=== PATIENT | female | born 2000 | race Hispanic/Latino ===

== ENCOUNTER 2018-11-30 16:41 | Emergency (ER) | payer OTHER ==
[~2018-11-30] VITALS: Ht 165.1 cm; Wt 70.5 kg
[2018-11-30] MEDS ORDERED: ACETAMINOPHEN TAB 650MG DOSE (2X325MG) PO ONE (19:30)
--- NOTE | 2018-11-30 20:26 | REPVR ---
EXAM: CT Cervical Spine Without Contrast EXAM DATE/TIME: 11/30/2018 7:40 PM CLINICAL HISTORY: 18 years old, female; Injury or trauma; Fall; Initial encounter; Blunt trauma; Additional info: Blunt trauma; Neck/back pain TECHNIQUE: Imaging protocol: Axial computed tomography images of the cervical spine without contrast. Coronal and sagittal reformatted images were created and reviewed. Radiation optimization: All CT scans at this facility use at least one of these dose optimization techniques: automated exposure control; mA and/or kV adjustment per patient size (includes targeted exams where dose is matched to clinical indication); or iterative reconstruction. COMPARISON: No relevant prior studies available. FINDINGS: Vertebrae: No acute fracture. Normal alignment. Discs/Spinal canal/Neural foramina: No spinal stenosis. No neural foraminal narrowing. Soft tissues: Unremarkable. Lungs: Lung apices are normal. Other: Foamy mucosal secretions are seen in the right maxillary sinus. IMPRESSION: No acute findings. Electronically signed by: Irene Abrams On 11/30/2018 20:26:07 PM
--- NOTE | 2018-11-30 20:31 | REPVR ---
EXAM: CT Thoracic Spine Without Contrast EXAM DATE/TIME: 11/30/2018 7:40 PM CLINICAL HISTORY: 18 years old, female; Injury or trauma; Fall; Initial encounter; Blunt trauma (contusions or hematomas); Additional info: Blunt trauma; Neck/back pain TECHNIQUE: Imaging protocol: Axial computed tomography images of the thoracic spine without intravenous contrast. Coronal and sagittal reformatted images were created and reviewed. Radiation optimization: All CT scans at this facility use at least one of these dose optimization techniques: automated exposure control; mA and/or kV adjustment per patient size (includes targeted exams where dose is matched to clinical indication); or iterative reconstruction. COMPARISON: No relevant prior studies available. FINDINGS: Vertebrae: No acute fracture. Normal alignment. Discs/Spinal canal/Neural foramina: No spinal stenosis. No neural foraminal narrowing. Soft tissues: Unremarkable. IMPRESSION: Unremarkable CT Spine. Electronically signed by: Irene Arbams On 11/30/2018 20:30:47 PM
[2018-11-30 21:02] VITALS: BP 128/67
== END 2018-11-30 21:21 | disposition home or self-care (01) ==
LOC: M ED 16:41
DX: S10.83XA Contusion of other specified part of neck, initial encounter (principal); S20.229A Contusion of unspecified back wall of thorax, initial encounter; X58.XXXA Exposure to other specified factors, initial encounter; Y92.138 Other place on military base as the place of occurrence of the external cause; Y99.1 Military activity

== ENCOUNTER 2019-06-13 09:40 | Emergency (ER) | payer OTHER ==
[~2019-06-13] VITALS: Ht 154.9 cm; Wt 67.3 kg
[2019-06-13] MEDS ORDERED: IBUP200T45 PO (09:48)
[2019-06-13] MEDS ORDERED: NS 1,000 ML IV ONE (10:15)
[2019-06-13] MEDS ORDERED: KETOROLAC 30 MG/ML VIAL (J1885) IV ONE (10:15)
[2019-06-13] MEDS ORDERED: ONDANSETRON 4MG/2ML VIAL (J2405) IV ONE (10:15)
[2019-06-13 10:45] LABS: BASO % 0.5 % (0.0-1.0); EOS # 0.1 10^3/uL (0.0-0.5); EOS % 1.1 % (0.0-3.0); HEMATOCRIT 39.3 % (36.0-47.0); HEMOGLOBIN 13.2 g/dl (12.0-15.5); LYMPH # 2.3 10^3/uL (1.5-5.0); LYMPH % 29.4 % (24.0-44.0); MEAN CORPUSCULAR HGB CONC 33.6 g/dl (32.0-36.5); MEAN CORPUSCULAR VOLUME 86.4 fl (80.0-96.0); MONO # 0.6 10^3/uL (0.0-0.8); MONO % 7.8 % (0.0-5.0); NEUTROPHILS # 4.8 10^3/uL (1.5-8.5); NEUTROPHILS % 61.1 % (36.0-66.0); PLATELET COUNT, AUTOMATED 319 10^3/uL (150-450); RED BLOOD COUNT 4.55 10^6/uL (4.00-5.40); WHITE BLOOD COUNT 7.9 10^3/uL (4.0-10.0)
[2019-06-13] MEDS ORDERED: ISOVUE-370 76% 100ML VIAL (Q9967) As Ordered ONE (11:02)
[2019-06-13 11:13] LABS: ALBUMIN 4.3 GM/DL (3.2-5.2); BILIRUBIN,DIRECT 0.1 MG/DL (0.0-0.2); BILIRUBIN,TOTAL 0.5 MG/DL (0.2-1.0); TOTAL PROTEIN 7.5 GM/DL (6.4-8.2)
--- NOTE | 2019-06-13 11:53 | REP ---
CT ABDOMEN AND PELVIS WITH IV CONTRAST: TECHNIQUE: Axial contrast enhanced images from the lung bases to the pubic symphysis using 100 mL Isovue 370 intravenous contrast material with multiplanar reformations. Visualized lung bases are clear. The liver, spleen, adrenals, pancreas, and kidneys demonstrate no significant abnormality. There is mild fullness in the renal pelves bilaterally with moderate distention of the urinary bladder. There is no evidence of abdominal aortic aneurysm. There is no adenopathy. There is no free air or free fluid. No bowel wall thickening is seen. The appendix is normal. No pelvic mass is seen. Uterus is deviated to the left of midline. I see no other significant finding. IMPRESSION: No evidence of appendicitis. Appendix appears normal. No free air or free fluid. No bowel wall abnormality. Moderate distention of the urinary bladder with mild fullness of the renal pelves. Electronically Signed by Jonny Mejia MD 06/13/2019 04:21 P
[2019-06-13] MEDS ORDERED: FLOM0.4C39 PO (13:48)
[2019-06-13] MEDS ORDERED: MAGN296S16 PO (13:50)
[2019-06-13 14:10] VITALS: BP 130/70
== END 2019-06-13 14:28 | disposition home or self-care (01) ==
LOC: M ED 09:40
DX: K59.00 Constipation, unspecified (principal); R33.9 Retention of urine, unspecified
CPT/HCPCS: 51702; 74177; 80047; 80076; 81001; 83690; 84702; 85025; 96361; 96374; 96375; 99284; J1885; J2405; Q9967